=== PATIENT | female | born 1980 | race Caucasian/White ===

== ENCOUNTER 2019-03-21 02:39 | Emergency (ER) | payer BC, OTHER ==
[~2019-03-21] VITALS: Ht 154.9 cm; Wt 63.5 kg
[2019-03-21] MEDS ORDERED: LACTATED RINGERS 1,000 ML IV ONE (03:09)
[2019-03-21] MEDS ORDERED: SCOPOLAMINE 1.5 MG (TRANSDERM-SCOP) PATCH TD ONE (03:15)
[2019-03-21] MEDS ORDERED: ONDANSETRON 4 MG/2 ML (SDV) Z0FRAN IVP ONE ×2 (03:15→04:00)
[2019-03-21 03:16] LABS: BASOPHILS # (AUTO) 0.1 10^3/uL (0.0-0.1); BASOPHILS % (AUTO) 0 % (0-10); EOSINOPHILS # (AUTO) 0.2 10^3/uL (0.0-0.3); EOSINOPHILS % (AUTO) 2 % (0-10); HEMATOCRIT 38 % (35-52); HEMOGLOBIN 13.4 G/DL (11.5-16.0); LYMPHOCYTES # (AUTO) 3.9 X 10^3 (1.0-4.0); LYMPHOCYTES % (AUTO) 32 % (12-44); MEAN CORPUSCULAR HEMOGLOBIN 29 PG (25-34); MEAN CORPUSCULAR HGB CONC 35 G/DL (32-36); MEAN CORPUSCULAR VOLUME 82 FL (80-99); MEAN PLATELET VOLUME 11.4 FL (7.4-10.4); MONOCYTES # (AUTO) 0.7 X 10^3 (0.0-1.0); MONOCYTES % (AUTO) 6 % (0-12); NEUTROPHILS # (AUTO) 7.4 X 10^3 (1.8-7.8); NEUTROPHILS % (AUTO) 60 % (42-75); PLATELET COUNT 251 10^3/uL (130-400); RED CELL DISTRIBUTION WIDTH 12.3 % (10.0-14.5); WHITE BLOOD COUNT 12.3 10^3/uL (4.3-11.0)
[2019-03-21 03:33] LABS: ALANINE AMINOTRANSFERASE 13 U/L (0-55); ALBUMIN 4.5 GM/DL (3.2-4.5); ALKALINE PHOSPHATASE 44 U/L (40-136); AMYLASE 15 U/L (25-125); BILIRUBIN,TOTAL 0.3 MG/DL (0.1-1.0); BUN/CREATININE RATIO 13; CALCIUM 9.6 MG/DL (8.5-10.1); CARBON DIOXIDE 18 MMOL/L (21-32); CHLORIDE 107 MMOL/L (98-107); CREATININE SERUM 0.82 MG/DL (0.60-1.30); GFR ESTIMATED > 60; GLUCOSE 191 MG/DL (70-105); LIPASE 11 U/L (8-78); MAGNESIUM 1.8 MG/DL (1.8-2.4); POTASSIUM 3.1 MMOL/L (3.6-5.0); SODIUM 139 MMOL/L (135-145)
[2019-03-21] MEDS ORDERED: PROMETHAZINE INJ 25 MG/ML (PHENERGAN) AMP IVP ONE (04:00)
[2019-03-21] MEDS ORDERED: diphenhydrAMINE 50 MG/ML INJ (BENADRYL) IVP ONE (04:00)
--- NOTE | 2019-03-21 04:02 | ED General ---
General Chief Complaint: Abdominal/GI Problems Stated Complaint: THROWING UP, DIZZY Nursing Triage Note: PT COMPLAINING OF DIZZINESS AND N/V SINCE ABOUT 0115 THIS MORNING Nursing Sepsis Screen: No Definite Risk Source of Information: Patient, Other (MALE S.O.) History of Present Illness Date Seen by Provider: Mar 21, 2019 Time Seen by Provider: 02:50 Initial Comments PT ARRIVES VIA POV FROM HOME PT WOKE UP AROUND 0100 AND BECAME VERY DIZZY WHEN SHE STOOD UP--ROOM WAS SPINNING PT THEN BEGAN TO VOMIT--HAS VOMITED SEVERAL TIMES, IN ADDITION TO DRY HEAVES HAS BEEN VERY HOT AND SWEATY WITH THE DIZZINESS NO HEADACHE NO FEVER OR RECENT ILLNESS WAS COMPLETELY FINE ALL DAY AND WAS FINE WHEN SHE WENT TO BED NO HISTORY OF SIMILAR PCP: DR. GOLDMAN Allergies and Home Medications Allergies Coded Allergies: No Known Drug Allergies (Unverified , 03/21/19) Home Medications Meclizine HCl 25 Mg Tablet, 25-50 MG PO Q6H Prescribed by: IAN WHITNEY on 03/21/19519 Ondansetron 8 Mg Tab.rapdis, 8 MG PO Q6H Prescribed by: IAN WHITNEY on 03/21/19519 Promethazine HCl 25 Mg Supp.rect, 25 MG RC Q4H Prescribed by: IAN WHITNEY on 03/21/19519 Scopolamine 1 Each Patch.td72, 1 EACH TD Q72 HOURS Prescribed by: IAN WHITNEY on 03/21/19519 Patient Home Medication List Home Medication List Reviewed: Yes Review of Systems Review of Systems Constitutional: diaphoresis, dizziness EENTM: no symptoms reported Respiratory: no symptoms reported Cardiovascular: no symptoms reported Gastrointestinal: see HPI; No abdominal pain, No diarrhea; nausea, vomiting Genitourinary: no symptoms reported : No LMP: February 28, 2019 (NO CONTROL) Musculoskeletal: no symptoms reported Skin: no symptoms reported Psychiatric/Neurological: See HPI (DIZZINESS); Denies Headache, Denies Numbness, Denies Paresthesia, Denies Seizure, Denies Tingling, Denies Weakness Hematologic/Lymphatic: No Symptoms Reported Immunological/Allergic: no symptoms reported Past Vskliox-Qnqkis-Oyvhdh Hx Patient Social History Alcohol Use: Denies Use Recreational Drug Use: No Smoking Status: Never a Smoker 2nd Hand Smoke Exposure: No Recent Foreign Travel: No Contact w/Someone Who Travel: No Recent Infectious Disease Expo: No Recent Hopitalizations: No Seasonal Allergies Seasonal Allergies: No Past Medical History Surgeries: No Respiratory: No Cardiac: No Neurological: No : No Reproductive Disorders: No Female Reproductive Disorders: Denies Genitourinary: No Gastrointestinal: No Musculoskeletal: No Endocrine: No HEENT: No Cancer: No Psychosocial: No Integumentary: No Blood Disorders: No Physical Exam Vital Signs Vital Signs - First Documented 03/21/19 02:45 Temp 97.5 Pulse 64 Resp 18 B/P (MAP) 116/105 (109) Pulse Ox 99 O2 Delivery Room Air Capillary Refill : Less Than 3 Seconds Height, Weight, BMI Height: 5'1.00" Weight: 140lbs. oz. 63.344398sy; BMI Method:Stated General Appearance: Other (LOOKS ILL, DRY HEAVING OR VOMITING CLEAR LIQUID, INTO A BUCKET SHE BROUGHT FROM HOME) HEENT: PERRL/EOMI, TMs Normal, Normal ENT Inspection, Pharynx Normal Neck: Normal Inspection Respiratory: Normal Breath Sounds, No Accessory Muscle Use, No Respiratory Distress Cardiovascular: Regular Rate, Rhythm, No Murmur Gastrointestinal: Non Tender, Soft Back: No CVA Tenderness Extremity: Normal Capillary Refill, Normal Range of Motion, No Pedal Edema Neurologic/Psychiatric: Alert, Oriented x3, No Motor/Sensory Deficits (GROSSLY INTACT--UNABLE TO DO DETAILED EXAM DUE TO SEVERE DIZZINESS AND NAUSEA/VOMITING ON ARRIVAL), 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, Other (PT UNABLE TO PERFORM CEREBELLAR TESTING ON ARRIVAL ) Skin: Cool, Damp, Pallor Progress/Results/Core Measures Suspected Sepsis Recent Fever Within 48 Hours: No Infection Criteria Present: Suspected New Infection New/Unexplained Altered Menta: No Sepsis Screen: No Definite Risk SIRS Temperature:97.5 Pulse: 64 Respiratory Rate: 18 Laboratory Tests 03/21/19 02:55: White Blood Count 12.3H Blood Pressure 116 /105 Mean: 109 Laboratory Tests 03/21/19 02:55: Creatinine 0.82, Platelet Count 251, Total Bilirubin 0.3 Results/Orders Lab Results Laboratory Tests Test 03/21/19 02:55 Range/Units White Blood Count 12.3 H 4.3-11.0 10^3/uL Red Blood Count 4.67 4.35-5.85 10^6/uL Hemoglobin 13.4 11.5-16.0 G/DL Hematocrit 38 35-52 % Mean Corpuscular Volume 82 80-99 FL Mean Corpuscular Hemoglobin 29 25-34 PG Mean Corpuscular Hemoglobin Concent 35 32-36 G/DL Red Cell Distribution Width 12.3 10.0-14.5 % Platelet Count 251 130-400 10^3/uL Mean Platelet Volume 11.4 H 7.4-10.4 FL Neutrophils (%) (Auto) 60 42-75 % Lymphocytes (%) (Auto) 32 12-44 % Monocytes (%) (Auto) 6 0-12 % Eosinophils (%) (Auto) 2 0-10 % Basophils (%) (Auto) 0 0-10 % Neutrophils # (Auto) 7.4 1.8-7.8 X 10^3 Lymphocytes # (Auto) 3.9 1.0-4.0 X 10^3 Monocytes # (Auto) 0.7 0.0-1.0 X 10^3 Eosinophils # (Auto) 0.2 0.0-0.3 10^3/uL Basophils # (Auto) 0.1 0.0-0.1 10^3/uL Sodium Level 139 135-145 MMOL/L Potassium Level 3.1 L 3.6-5.0 MMOL/L Chloride Level 107 98-107 MMOL/L Carbon Dioxide Level 18 L 21-32 MMOL/L Anion Gap 14 5-14 MMOL/L Blood Urea Nitrogen 11 7-18 MG/DL Creatinine 0.82 0.60-1.30 MG/DL Estimat Glomerular Filtration Rate > 60 BUN/Creatinine Ratio 13 Glucose Level 191 H 70-105 MG/DL Calcium Level 9.6 8.5-10.1 MG/DL Corrected Calcium 9.2 8.5-10.1 MG/DL Magnesium Level 1.8 1.8-2.4 MG/DL Total Bilirubin 0.3 0.1-1.0 MG/DL Aspartate Amino Transf (AST/SGOT) 11 5-34 U/L Alanine Aminotransferase (ALT/SGPT) 13 0-55 U/L Alkaline Phosphatase 44 40-136 U/L Total Protein 7.0 6.4-8.2 GM/DL Albumin 4.5 3.2-4.5 GM/DL Amylase Level 15 L 25-125 U/L Lipase 11 8-78 U/L Serum Test, Qualitative NEGATIVE NEGATIVE My Orders Orders - IAN WHITNEY DO Ed Iv/Invasive Line Start (03/21/19 03:09) Monitor-Rhythm Ecg Trace Only (03/21/19 03:09) Amylase (03/21/19 03:09) Cbc With Automated Diff (03/21/19 03:09) Comprehensive Metabolic Panel (03/21/19 03:09) Hcg,Qualitative Serum (03/21/19 03:09) Lipase (03/21/19 03:09) Magnesium (03/21/19 03:09) Ct Head Wo (03/21/19 03:09) Ed Iv/Invasive Line Start (03/21/19 03:09) Ondansetron Injection (Zofran Injectio (03/21/19 03:15) Scopolamine Patch (Transderm-Scop Patch) (03/21/19 03:15) Ed Iv/Invasive Line Start (03/21/19 03:09) Lactated Ringers (Lr 1000 Ml Iv Solution (03/21/19 03:09) Ondansetron Injection (Zofran Injectio (03/21/19 04:00) Promethazine Injection (Phenergan Injec (03/21/19 04:00) Diphenhydramine Injection (Benadryl Inje (03/21/19 04:00) Meclizine Tablet (Antivert Tablet) (03/21/19 05:00) 1/2 Ns W/Kcl 20 Meq/L (0.45% Sodium Chlo (03/21/19 05:00) Medications Given in ED Current Medications Medications Dose Ordered Sig/Connie Route Start Time Stop Time Status Last Admin Dose Admin Diphenhydramine HCl 25 mg ONCE ONCE IVP 03/21/19 04:00 03/21/19 05:11 DC 03/21/19 04:00 25 MG Lactated Ringer's 1,000 ml @ 0 mls/hr Q0M ONCE IV 03/21/19 03:09 03/21/19 03:12 DC 03/21/19 03:15 999 MLS/HR Meclizine HCl 50 mg ONCE ONCE PO 03/21/19 05:00 03/21/19 05:01 DC 03/21/19 04:56 50 MG Ondansetron HCl 8 mg ONCE ONCE IVP 03/21/19 03:15 03/21/19 03:16 DC 03/21/19 03:15 8 MG Ondansetron HCl 8 mg ONCE ONCE IVP 03/21/19 04:00 03/21/19 04:01 DC 03/21/19 03:51 8 MG Promethazine HCl 25 mg ONCE ONCE IVP 03/21/19 04:00 03/21/19 05:11 DC 03/21/19 04:00 25 MG Scopolamine 1.5 mg ONCE ONCE TD 03/21/19 03:15 03/21/19 03:16 DC 03/21/19 03:15 1.5 MG Vital Signs/I&O 03/21/19 02:45 Temp 97.5 Pulse 64 Resp 18 B/P (MAP) 116/105 (109) Pulse Ox 99 O2 Delivery Room Air Capillary Refill : Less Than 3 Seconds Blood Pressure Mean: 109 Progress Note : Progress Note GIVEN MULTIPLE MEDICATIONS FOR NAUSEA, INCLUDING ZOFRAN, SCOPOLAMINE, PHENERGAN + BENADRYL, WELL ANTIVERT PT WITH IMPROVEMENT IN SYMPTOMS --NAUSEA IS EASING, DIZZINESS IS IMPROVING PT ABLE TO TOLERATE SIPS OF WATER. Diagnostic Imaging Comments CT HEAD--NO ACUTE PROCESS, PER [facility] VIA FAX AT [id number] Reviewed: Reviewed by Me Departure Impression Primary Impression: Acute onset of vertigo with vomiting and inability to stand Disposition: 01 HOME, SELF-CARE Condition: Improved Departure-Patient Inst. Referrals: TANIA GOLDMAN DO (PCP) Primary Care Physician MELO VALDEZ MD (Family) Primary Care Physician Patient Instructions: Vertigo (a Type of Dizziness) (DC) Add. Discharge Instructions: SLOW POSITION CHANGES LOTS OF CLEAR LIQUIDS--WATER, BROTH, JELLO, GATORADE WHEN YOU ARE FEELING BETTER, ADD BRATS DIET TO CLEAR LIQUIDS--BANANAS, RICE, APPLESAUCE, TOAST, SALTINES FOLLOW UP WITH YOUR DR TOMORROW IF NO BETTER RETURN TO ER IF WORSE All discharge instructions reviewed with patient and/or family. Voiced understanding. Scripts Meclizine HCl (Meclizine HCl) 25 Mg Tablet 25-50 MG PO Q6H for Dizziness, #30 TAB Prov: IAN WHITNEY DO 03/21/19 Promethazine HCl (Phenergan) 25 Mg Supp.rect 25 MG RC Q4H for Nausea/Vomiting, #10 SUPP.RECT Prov: IAN WHITNEY DO 03/21/19 Ondansetron (Ondansetron Odt) 8 Mg Tab.rapdis 8 MG PO Q6H for Nausea/Vomiting, #10 TAB Prov: IAN WHITNEY DO 03/21/19 Scopolamine (Transderm-Scop) 1 Each Patch.td72 1 EACH TD Q72 HOURS for Dizziness, #3 PATCH Prov: IAN WHITNEY DO 03/21/19 IAN WHITNEY DO Mar 21, 2019 04:02
[2019-03-21] MEDS ORDERED: 1/2 NS W/KCL 20 MEQ/L 1,000 ML IV SCH (05:00)
[2019-03-21] MEDS ORDERED: MECLIZINE 25 MG (ANTIVERT) TAB PO ONE ×2 (05:00→07:00)
[2019-03-21] MEDS ORDERED: SCOP1PAT11 TD (05:20)
[2019-03-21] MEDS ORDERED: PROM25SU43 RC (05:20)
[2019-03-21] MEDS ORDERED: MECL-106 PO (05:20)
[2019-03-21] MEDS ORDERED: ONDA8TAB13 PO (05:20)
--- NOTE | 2019-03-21 05:28 | Diagnostic Imaging Report ---
PROCEDURE: CT head without contrast. TECHNIQUE: Multiple contiguous axial images were obtained through the brain without the use of intravenous contrast. Auto Exposure Controls were utilized during the CT exam to meet ALARA standards for radiation dose reduction. INDICATION: 38-year-old female with dizziness, nausea and vomiting. COMPARISONS: 12/30/2007 FINDINGS: Midline structures are not displaced. Lateral, third, and fourth ventricles are normal in size, shape and anatomic position. There is no mass, mass effect, hydrocephalus or hemorrhage. Diehl-white differentiation is normal. There is no sulcal effacement. There are no abnormal extra-axial fluid collections or hemorrhage. Basilar cisterns are normal. Sinuses, orbits and mastoid air cells are grossly normal. Bone windows show no calvarial changes. IMPRESSION: Essentially unremarkable nonenhanced CT brain. Dictated by: Dictated on workstation # [id number]
[2019-03-21] MEDS ORDERED: diphenhydrAMINE 50 MG/ML INJ (BENADRYL) IM ONE (07:00)
[2019-03-21] MEDS ORDERED: PROMETHAZINE INJ 25 MG/ML (PHENERGAN) AMP IM ONE (07:00)
[2019-03-21 07:10] VITALS: BP 110/68
== END 2019-03-21 07:05 | disposition home or self-care (01) ==
LOC: EDUNIT# 02:39 → ER 02:40
DX: R42 Dizziness and giddiness (principal); R11.10 Vomiting, unspecified; R26.89 Other abnormalities of gait and mobility
CPT/HCPCS: 36415; 70450; 80053; 82150; 83690; 83735; 84703; 85025; 93041; 96361; 96372; 96374; 96375; 96376

== ENCOUNTER → 2023-02-22 | Outpatient (CLI) | payer OTHER ==
[~2023-02-22] MED LIST: MECL-149 PO; ONDA8TAB13 PO; PROM25SU43 RC; SCOP1PAT10 TD
--- NOTE | 2023-02-22 14:38 | Diagnostic Imaging Report ---
INDICATION: Bilateral 3D screening mammograms. COMPARISON: This is a baseline study. TECHNIQUE: Screening digital mammography was performed bilaterally with a Computer Aided Detection (CAD) system. FINDINGS: There is mild breast parenchymal density bilaterally. Ovoid circumscribed nodules are seen in the upper outer quadrants of the breasts and likely represent lymph nodes. Otherwise, no spiculated mass or clustered microcalcification is identified. IMPRESSION: Category 2, benign findings. Continued physical examination and annual mammographic followup are recommended. ACR BI-RADS Category 2: Benign findings. Result letter will be mailed to the patient. Note: At least 10% of breast cancer is not imaged by mammography. Dictated by: Dictated on workstation # [id number]
== END ==
LOC: RAD 13:00
PROVIDERS: ATTEND Family Medicine
DX: Z12.31 Encounter for screening mammogram for malignant neoplasm of breast (principal)
CPT/HCPCS: 77063; 77067